=== PATIENT | female | born 1990 | race Caucasian/White ===

== ENCOUNTER 2016-12-25 19:58 | Emergency (ER) | payer BC ==
[2016-12-25] MEDS ORDERED: NORMAL SALINE 10 ML SYRINGE FLUSH IVP PRN (20:16)
[2016-12-25] MEDS ORDERED: Sodium Chloride 0.9% 1,000 ML PRIMARY IV ONE (20:16)
--- NOTE | 2016-12-25 20:26 | EKG ---
[address] [address] Measurements Intervals [place] Rate: 55 P: 15 MN: 133 QRS: 13 QRSD: 84 T: 42 QT: 401 QTc: 391 Interpretive Statements SINUS BRADYCARDIA WITH SINUS ARRHYTHMIA MODERATE VOLTAGE CRITERIA FOR LVH, No previous ECG available for comparison Electronically Signed On 12-26-16 17:05:50 MST by Jesus Navarrete [email or web address]
[2016-12-25 20:33] LABS: BASOPHILS # (AUTO) 0.03 10*3/UL; BASOPHILS % (AUTO) 0.4 % (0-1); EOSINOPHILS % (AUTO) 3.5 % (0-8); HEMATOCRIT 39.8 % (37.0-47.0); HEMOGLOBIN 13.4 g/dL (12.0-16.0); IMM GRAN % (AUTO) 0.1 % (0-5); IMM GRAN# (AUTO) 0.01 10*3/UL; LYMPHOCYTES # (AUTO) 2.66 10*3/uL; LYMPHOCYTES % (AUTO) 34.4 % (10-50); MEAN CORPUSCULAR HEMOGLOBIN 29.6 PG (27-31); MEAN CORPUSCULAR HGB CONC 33.7 g/dL (33-37); MEAN PLATELET VOLUME 10.9 FL (7.4-12.2); MONOCYTES # (AUTO) 0.53 10*3/UL (0.3-0.8); MONOCYTES % (AUTO) 6.8 % (5-15); NEUTROPHILS # (AUTO) 4.24 10*3/UL; NEUTROPHILS % (AUTO) 54.8 % (50-80); PLATELET MORPHOLOGY COMMENT NORMAL MORPHOLOGY (NORM); RDW COEFFICIENT OF VARIATION 12.7 % (11.5-14.5); RED BLOOD COUNT 4.53 10^6/uL (4.20-5.40); WHITE BLOOD COUNT 7.74 10^3/uL (4.8-10.8)
[2016-12-25 20:40] LABS: ASPARTATE AMINO TRANSFERASE 19 IU/L (8-39); BILIRUBIN,TOTAL 0.4 mg/dL (0.3-1.2); BLOOD UREA NITROGEN 12 mg/dL (7-22); BUN/CREATININE RATIO 17.14 (6-20); CALCIUM 9.6 mg/dL (8.7-10.7); CHLORIDE 104 meq/L (98-112); CREATININE 0.7 mg/dL (0.50-1.20); EST GLOMERULAR FILTRATION > 60 (>60 ml/min/1.73m(2)); GLUCOSE 124 mg/dL (78-110); MAGNESIUM 1.9 mg/dL (1.6-2.4); POTASSIUM 3.8 meq/L (3.8-5.2); SODIUM 141 meq/L (135-145); TOTAL PROTEIN 7.3 g/dL (6.1-8.0)
--- NOTE | 2016-12-25 21:04 | PDOC ---
General Adult HPI - General Chief Complaint: General Medical Stated Complaint: Possible Syncopal Episode Date Seen by Provider: 12/25/16 Time Seen by Provider: 20:20 Source: POSITIVE: Patient, Other (parents) Exam Limitations: POSITIVE: No limitations Nurse's Notes Reviewed & Considered: Yes - History of Present Illness Initial Comment: The patient is a 26-year-old female who is evaluated after a syncopal episode. She was eating dinner with her parents when apparently she slumped over and became unresponsive. Her parents state that she appeared pale and would not respond verbally. They subsequently called 911. They stated that she remained out of it for approximately 2-3 minutes and then slowly came to. By the time EMS arrived she had woken up and her parents were able to get her in the car so they ended up driving her here themselves. By the time she arrives here and is evaluated she states she is feeling much better. She states that just prior to the episode she felt like her heart was beating abnormally. She currently denies any headache, chest pain, numbness or weakness in her extremities or any other current symptoms. She has not had any recent illness or trauma. She has had one previous syncopal episode in 2013. At that time she was also having headaches and was subsequently diagnosed with high blood pressure. She is taking metoprolol for blood pressure and her blood pressure has been well controlled on this medication. She did have brain imaging at that time which was all normal. She does not currently take any prescription medication other than the metoprolol. Have you received a tetanus shot in the past 10 years?: Unknown - Patient Home Medications Home Medications: Home Medications No Home Meds 04/15/13 - Patient Allergies Allergies/Adverse Reactions: Allergies Allergy/AdvReac Type Severity Reaction Status Date / Time No Known Allergies Allergy Verified 12/25/16 20:12 Past Medical History - heen HEENT History: Denies History Cardiovascular History: Hypertension Respiratory History: Denies History Gastrointestinal History: Denies History Genitourinary History: Denies History Endocrine History: Other (please comment) Additional Endocrine History: pt reports is "often" hypogylcemic Musculoskeletal History: Denies History Prosthesis or Implant: No Neurological History: Denies History Blood Disorders: Denies History Psychiatric History: Denies History History of Sexually Transmitted Diseases: No Cancer History: Denies History In Past Year Been Physically Harmed or Verbally Threatened: No History of MDRO: No Tobacco Use: Never Smoker Alcohol Use: None Substance Use Type: None Previous Surgical History: No Significant Family History: No pertinent family hx Past Medical History Reviewed: Reviewed - No Changes ROS - Limitations ROS Limitations: No Limitations Constitution: DENIES: Chills, Fever Cardiovascular: REPORTS: Heart Palpitations, Blood Pressure Problem (Treated for hypertension). DENIES: Chest Pain, Heart Racing, Edema Respiratory: REPORTS: Denies Resp Symptoms Neurological: REPORTS: Fainting. DENIES: Headache, Dizziness, Numbness, Seizure Activity, Weakness Gastrointestinal: DENIES: Abdominal Pain, Nausea, Vomitting Musculoskeletal: REPORTS: Denies MS Symptoms Eyes: REPORTS: Denies Symptoms ENT: REPORTS: Denies Symptoms, Other (She did have some ringing in her ears when she first woke up however this is currently resolved) Skin: DENIES: Rash General Adult Exam - General Appearance General Appearance: POSITIVE: Alert, Cooperative, No Acute Distress - HEENT HEENT: POSITIVE: Head Inspection Nml, Eyes Inspection Nml, Ears Inspection Nml, Pharynx Inspect. Nml, PERRL, EOMI - Neck Neck: POSITIVE: Normal Inspection. NEGATIVE: Lymphadenopathy - Respiratory Respiratory: POSITIVE: No Respiratory Distress, Breath Sounds Normal - Cardiovascular Cardiovascular: POSITIVE: Regular Rate & Rhythm, No Murmur Peripheral Pulses: Dorsalis-pedis (R): 2+, Dorsalis-pedis (L): 2+ - Abdomen Abdomen: Soft: (All Quadrants), Denies Tenderness: (All Quadrants), No Distention: (All Quadrants) - Back Back: POSITIVE: Normal Inspection - Skin Skin: POSITIVE: Normal Color. 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 Lab Results Reviewed: Yes Lab Results:: Laboratory Results 12/25/16 Range/Units 20:28 WBC 7.74 (4.8-10.8) 10^3/uL RBC 4.53 (4.20-5.40) 10^6/uL Hgb 13.4 (12.0-16.0) g/dL Hct 39.8 (37.0-47.0) % MCV 87.9 (81-99) FL MCH 29.6 (27-31) PG MCHC 33.7 (33-37) g/dL RDW Std Deviation 39.8 (39-50) fL RDW Coeff of Herminia 12.7 (11.5-14.5) % Plt Count 275 (140-350) 10*3/uL MPV 10.9 (7.4-12.2) FL Immature Gran % (Auto) 0.1 (0-5) % Neut % (Auto) 54.8 (50-80) % Lymph % (Auto) 34.4 (10-50) % [place] % (Auto) 6.8 (5-15) % Eos % (Auto) 3.5 (0-8) % Baso % (Auto) 0.4 (0-1) % Immature Gran # (Auto) 0.01 10*3/UL Neut # (Auto) 4.24 10*3/UL Lymph # (Auto) 2.66 10*3/uL [place] # (Auto) 0.53 (0.3-0.8) 10*3/UL Eos # (Auto) 0.27 10*3/UL Baso # (Auto) 0.03 10*3/UL WBC Morphology Comment Normal morphology (NORM) Plt Morphology Comment Normal morphology (NORM) RBC Morph Comment Normal morphology (NORM) Sodium 141 (135-145) meq/L Potassium 3.8 (3.8-5.2) meq/L Chloride 104 (98-112) meq/L Carbon Dioxide 23 (23-33) meq/L Anion Gap 14 (5-20) BUN 12 (7-22) mg/dL Creatinine 0.7 (0.50-1.20) mg/dL Estimated GFR > 60 (>60 ml/min/1.73m(2)) BUN/Creatinine Ratio 17.14 (6-20) Glucose 124 H (78-110) mg/dL Calculated Osmolality 292.0 (267-292) mOsm/kg Calcium 9.6 (8.7-10.7) mg/dL Magnesium 1.9 (1.6-2.4) mg/dL Total Bilirubin 0.4 (0.3-1.2) mg/dL AST 19 (8-39) IU/L ALT 26 (9-52) IU/L Alkaline Phosphatase 61 (38-126) IU/L Troponin I < 0.012 (< 0.040) ng/mL Total Protein 7.3 (6.1-8.0) g/dL Albumin 4.4 (3.5-4.8) g/dL Globulin 2.9 (2.50-4.10) g/dL Albumin/Globulin Ratio 1.50 (1.3-2.0) mg/g TSH 0.996 (0.2700-4.2000) uIU/mL Serum HCG, Qual Negative EKG Interpreted/Reviewed By Me:: Yes EKG Interpretation:: POSITIVE: Normal Rate, Normal Intervals, Normal Rebecca, Normal QRS, Normal ST/T, Other (Sinus bradycardia with a rate of 55, some evidence of LVH) - Patient's Progress MDM / ED Course: The patient's blood pressure and pulse remained normal here in the emergency room. She exhibited no arrhythmias here. Her EKG shows no acute findings other than sinus bradycardia with a rate of 55. She is on a beta french. Her blood work is all essentially normal. Chest x-ray shows normal heart size. At this point the exact etiology of her syncopal episode is unclear. She did experience some palpitations just prior to the episode making some type of arrhythmia somewhat more concerning as a potential cause. At this time she appears to be clinically stable. She is advised to follow-up with her primary care provider to discuss further cardiac testing and/or possible cardiology referral. She is to return to the emergency room if she develops any further syncopal episodes, any worsening or change in symptoms. - Consult Counseled: POSITIVE: Patient, Family, RE: Lab Results, RE: Radiology Results, RE : DX, RE: Need for F/U Patient Care Time - Estimated PCT Patient Care Time (In Minutes): 35 Vital Signs - Recent Vital Signs Vital Signs: Vital Signs (Last 8 hours) Pulse Pulse Pulse Pulse BP BP BP 12/25/16 20:16 55 L 72 73 84 103/71 119/81 127/82 - VS Reviewed Vital Signs Reviewed: Yes Discharge Clinical Impression: Syncope Condition: Stable Patient Instructions Given at Discharge: Syncope (ED) Additional Instructions: No identifiable cause of your passing out episode was found here in the emergency room. A heart arrhythmia cannot be completely excluded without knowing what your heart rhythm was at the time of the episode. Recommend rest and pushing fluids. Return to the emergency room if any further passing out episodes, chest pain, palpitations or rapid heartbeat, any worsening or change in symptoms. Recommend follow-up with primary care to discuss potential further cardiac testing and/or cardiology referral. Follow Up With: NONE,NONE [Primary Care Provider] -
[2016-12-25 22:21] VITALS: RESP 18; TEMP 97.1
--- NOTE | 2016-12-27 08:37 | DI ---
PA /LATERAL CHEST X-RAY, 12/25/2016 8:17 PM : Clinical History: Syncope. Previous Exam: None at this facility. There is no acute soft tissue or bony abnormality. Heart size is normal. Lungs are clear. Mediastinal structures are normal. There are no pulmonary nodules. Reading: Normal chest x-ray.
== END 2016-12-25 21:40 | disposition home or self-care (01) ==
LOC: ER 19:58
DX: R55 Syncope and collapse (principal); I10 Essential (primary) hypertension
CPT/HCPCS: 71020; 80053; 83735; 84443; 84484; 84703; 85025; 93005; 93010; 96360; 99284; J7030